=== PATIENT | male | born 1965 | race Caucasian/White ===

== ENCOUNTER 2016-06-01 19:19 | Emergency (ER) | payer OTHER ==
[~2016-06-01] VITALS: Ht 182.9 cm; Wt 81.6 kg
[2016-06-01 19:23] VITALS: BP 148/85
[2016-06-01] MEDS ORDERED: TETANUS-DIPTH-ACEL PERTUSSIS 0.5ML SYRG IM ONE (21:00)
[2016-06-01] MEDS ORDERED: BACITRACIN-POLYMYXIN B TOPICAL OINT UD TOP ONE ×2 (21:29→22:00)
== END 2016-06-01 23:21 | disposition home or self-care (01) ==
LOC: EDBD 19:19 → ER 19:26
DX: S41.111A Laceration without foreign body of right upper arm, initial encounter (principal); W26.0XXA Contact with knife, initial encounter; Y93.89 Activity, other specified; Y99.8 Other external cause status; Y92.89 Other specified places as the place of occurrence of the external cause; Z23 Encounter for immunization
CPT/HCPCS: 12004; 90471; 90715